=== PATIENT | female | born 1940 | race Caucasian/White ===

== ENCOUNTER 2017-06-16 10:06 | Emergency (ER) | payer OTHER ==
[~2017-06-16] VITALS: Ht 175.2 cm; Wt 108.9 kg
[~2017-06-16 10:06] MED LIST: ASPIRIN81 M1 PO; CADUET 10 MG-201 TA1 PO; DARVOCET N 1001 TAB PO; FISH OIL CONC1000 MG PO; FLEXERIL10 MG PO; HYDROCODONE BIT1 T11 PO; PRAVASTATIN SOD10 MG PO; TENORETIC-25/501 TAB PO; TOBREX 5 ML5 ML OP; TRAMADOL50 MG PO; VITAMIN B COMPL1 CAP PO; VITAMIN D32000 I1 PO
[2017-06-16] MEDS ORDERED: ATENOLOL-CHLOR1 EAC1 PO (10:18)
[2017-06-16] MEDS ORDERED: Synthroid,Levo88 MCG PO (10:18)
[2017-06-16] MEDS ORDERED: AMLODIPINE-BEN1 EAC3 PO (10:18)
[2017-06-16 10:45] LABS: BASO # 0.1 10*3/uL (0.0-0.1); BASO % 0.8 % (0.0-1.0); EOS # 0.2 10*3/uL (0.0-0.4); EOS % 2.3 % (1.0-4.0); HEMATOCRIT 38.3 % (37.0-47.0); HEMOGLOBIN 12.4 g/dl (12.0-16.0); LYMPH # 3.2 10*3/uL (1.3-4.4); LYMPH % 35.5 % (27.0-41.0); MEAN CELL VOLUME 86.3 fl (81.0-99.0); MEAN CORPUSCULAR HGB 27.9 pg (27.0-31.0); MEAN CORPUSCULAR HGB CONC 32.4 g/dl (33.0-37.0); MEAN PLATELET VOLUME 10.5 fl (9.6-12.3); MONO # 0.6 10*3/uL (0.1-1.0); MONO % 7.1 % (3.0-9.0); NEUT # 4.9 10*3/uL (2.3-7.9); PLATELET COUNT AUTOMATED 320 10*3/uL (130-400); RED BLOOD COUNT 4.44 10*6/uL (4.10-5.10); RED CELL DISTRI WIDTH 15.4 % (0-14.5)
[2017-06-16 10:59] LABS: ALBUMIN 3.4 gm/dl (3.1-4.5); CREATININE 1.74 mg/dL (0.55-1.02); POTASSIUM 3.8 mmol/L (3.5-5.1); TOTAL PROTEIN 7.3 gm/dL (6.4-8.2)
== END 2017-06-16 11:42 | disposition home or self-care (01) ==
LOC: ED 10:06
PROVIDERS: Nurse Practitioner Family
DX: R04.0 Epistaxis (principal); Z90.710 Acquired absence of both cervix and uterus; Z90.89 Acquired absence of other organs; Z79.899 Other long term (current) drug therapy; Z79.82 Long term (current) use of aspirin; Z88.8 Allergy status to other drugs, medicaments and biological substances

== ENCOUNTER 2024-04-21 11:25 | Emergency (ER) | payer MEDICARE ==
[~2024-04-21] VITALS: Ht 165.1 cm; Wt 99.8 kg
[~2024-04-21 11:25] MED LIST changes: +AMLODIPINE-BEN1 EAC3 PO; +ATENOLOL-CHLOR1 EAC1 PO; +Synthroid,Levo88 MCG PO
[2024-04-21 12:38] LABS: BASO # 0.1 10*3/uL (0.0-0.1); EOS # 0.4 10*3/uL (0.0-0.4); EOS % 4.3 % (1.0-4.0); HEMATOCRIT 34.1 % (37.0-47.0); MEAN CELL VOLUME 93.4 fl (81.0-99.0); MEAN CORPUSCULAR HGB 29.6 pg (27.0-31.0); MEAN CORPUSCULAR HGB CONC 31.7 g/dl (33.0-37.0); MONO # 0.8 10*3/uL (0.1-1.0); MONO % 8.2 % (3.0-9.0); NEUT # 4.6 10*3/uL (2.3-7.9); NEUT % 49.3 % (47.0-73.0); PLATELET COUNT AUTOMATED 218 10*3/uL (130-400); RED BLOOD COUNT 3.65 10*6/uL (4.10-5.10); RED CELL DISTRI WIDTH 14.4 % (0-14.5); WHITE BLOOD COUNT 9.3 10*3/uL (4.8-10.8)
[2024-04-21 12:54] LABS: BILIRUBIN Negative (Negative); BLOOD Negative (Negative); CLARITY Clear (Clear); COLOR Yellow (Yellow); GLUCOSE Negative (Negative); KETONE Negative (Negative); LEUKO ESTERASE Negative (Negative); NITRITE Negative (Negative); UROBILINOGEN 0.2 E.U./dl (0.0-1.0)
[2024-04-21 13:04] LABS: EPITHELIAL CELLS 31-40
[2024-04-21 13:05] LABS: BACTERIA 2+; YEAST TRACE
[2024-04-21 13:06] LABS: WBC 0-2 wbc/hpf (0-5)
[2024-04-21 13:12] LABS: POTASSIUM 3.9 mmol/L (3.4-5.1)
== END 2024-04-21 14:04 | disposition left against medical advice (07) ==
LOC: ED 11:25
PROVIDERS: Physician Assistant Medical
DX: I13.0 Hypertensive heart and chronic kidney disease with heart failure and stage 1 through stage 4 chronic kidney disease, or unspecified chronic kidney disease (principal); I50.9 Heart failure, unspecified; Z53.29 Procedure and treatment not carried out because of patient's decision for other reasons; E78.5 Hyperlipidemia, unspecified; N18.30 Chronic kidney disease, stage 3 unspecified; Z88.8 Allergy status to other drugs, medicaments and biological substances; Z90.710 Acquired absence of both cervix and uterus; Z90.89 Acquired absence of other organs; Z98.890 Other specified postprocedural states